=== PATIENT | female | born 1995 | race Caucasian/White ===

== ENCOUNTER 2018-07-30 14:37 | Emergency (ER) | payer SELFPAY | END 2018-07-30 14:41 | disposition left against medical advice (07) | LOC: EDBD → MERGE 14:38 → ED 14:38 | DX: M25.512 Pain in left shoulder (principal); Z53.21 Procedure and treatment not carried out due to patient leaving prior to being seen by health care provider ==

== ENCOUNTER 2018-08-02 16:18 | Emergency (ER) | payer OTHER ==
[~2018-08-02] VITALS: Ht 160 cm; Wt 62.3 kg
[2018-08-02 16:21] VITALS: BP 145/95
[2018-08-02] MEDS ORDERED: KETOROLAC 30 MG/1 ML ONE (16:36)
[2018-08-02] MEDS ORDERED: METHOCARBAMOL 750 MG TABLET ONE (16:36)
[2018-08-02] MEDS ORDERED: KETOROLAC 30 MG/1 ML IM ONE (17:00)
[2018-08-02] MEDS ORDERED: PLEASE ENTER ALLERGIES MC SCH (17:00)
[2018-08-02] MEDS ORDERED: METHOCARBAMOL 750 MG TABLET PO ONE (17:00)
== END 2018-08-02 17:13 | disposition home or self-care (01) ==
LOC: ED 17:00
DX: S43.102A Unspecified dislocation of left acromioclavicular joint, initial encounter (principal); S46.912A Strain of unspecified muscle, fascia and tendon at shoulder and upper arm level, left arm, initial encounter; X58.XXXA Exposure to other specified factors, initial encounter; Y93.89 Activity, other specified; Y92.89 Other specified places as the place of occurrence of the external cause; Y99.8 Other external cause status
CPT/HCPCS: 73030; 96372; 99283; J1885

== ENCOUNTER 2018-09-04 16:46 | Emergency (ER) | payer OTHER ==
[~2018-09-04] VITALS: Ht 160 cm; Wt 60.1 kg
[2018-09-04 17:16] VITALS: BP 133/86
[2018-09-04 17:49] LABS: CULTURE INDICATED? YES; MICROSCOPIC INDICATED
[2018-09-04 17:55] LABS: BASOPHILS # (AUTO) 0.01 x10^3/uL (0-0.1); BASOPHILS % (AUTO) 0 % (0-1); EOSINOPHILS # (AUTO) 0.02 x10^3/uL (0-0.4); EOSINOPHILS % (AUTO) 0 % (1-7); LYMPHOCYTES # (AUTO) 0.77 x10^3/uL (1-3.4); LYMPHOCYTES % (AUTO) 7 % (22-44); MD NO; MEAN CORPUSCULAR HEMOGLOBIN 30.3 pg (27.0-34.8); MEAN CORPUSCULAR HGB CONC 34.5 g/dL (32.4-35.8); MEAN CORPUSCULAR VOLUME 87.8 fL (80-100); MEAN PLATELET VOLUME 8.7 fL (7.4-10.4); MONOCYTES # (AUTO) 0.44 x10^3/uL (0.2-0.8); MONOCYTES % (AUTO) 4 % (2-9); NEUTROPHILS # (AUTO) 10.34 x10^3/uL (1.8-6.8); NEUTROPHILS % (AUTO) 89 % (42-75); PLATELET COUNT 238 x10^3/uL (130-400); RED BLOOD COUNT 4.84 x10^6/uL (3.82-5.3); RED CELL DISTRIBUTION WIDTH 12.3 % (9.6-15.2)
[2018-09-04 18:10] LABS: ALANINE AMINOTRANSFERASE 23 U/L (12-78); ALBUMIN 4.2 g/dL (3.4-5.0); ANION GAP 9 mmol/L (5-15); CALCIUM 9.1 mg/dL (8.5-10.1); CHLORIDE 105 mmol/L (98-107); CREATININE 1.01 mg/dL (0.55-1.02)
[2018-09-04 18:12] LABS: ALKALINE PHOSPHATASE 57 U/L (45-117); BILIRUBIN,TOTAL 0.7 mg/dL (0.2-1.0); TOTAL PROTEIN 8.8 g/dL (6.4-8.2)
[2018-09-04] MEDS ORDERED: DEXAMETHASONE 4 MG TABLET PO ONE (20:00)
[2018-09-04] MEDS ORDERED: KETOROLAC 30 MG/1 ML IM ONE (20:00)
[2018-09-04] MEDS ORDERED: ONDANSETRON ODT 4 MG PO ONE (20:00)
[2018-09-04] MEDS ORDERED: KETOROLAC 30 MG/1 ML ONE (20:05)
[2018-09-04] MEDS ORDERED: ONDANSETRON ODT 4 MG ONE (20:06)
[2018-09-04] MEDS ORDERED: DEXAMETHASONE 4 MG TABLET ONE (20:06)
--- NOTE | 2018-09-04 20:41 | NUR ---
PT TOLERATING PO FLUIDS
== END 2018-09-04 20:53 | disposition home or self-care (01) ==
LOC: ED 20:03
DX: R11.2 Nausea with vomiting, unspecified (principal); J02.0 Streptococcal pharyngitis; R19.7 Diarrhea, unspecified
CPT/HCPCS: 36415; 80053; 81001; 83690; 85025; 87086; 87880; 96372; 99283; J1885; Q0162